=== PATIENT | female | born 1960 | race Caucasian/White ===

== ENCOUNTER 2017-12-23 08:02 | Day surgery (SDC) | payer OTHER ==
[2017-12-19 13:05] VITALS: BMI 25.0
[2017-12-23] MEDS ORDERED: BUPIVACAINE HCL/PF 2.5 MG/ML - 30 ML VIAL IJ ONE (10:39)
[2017-12-23] MEDS ORDERED: LIDOCAINE HCL/PF 2% SDV 5ML VIAL ONE (10:56)
[2017-12-23] MEDS ORDERED: PROPOFOL 20 ML ONE ×2 (10:56→11:07)
[2017-12-23] MEDS ORDERED: MIDAZOLAM HCL 2 MG/2 ML SINGLE DOSE VIAL ONE (10:57)
[2017-12-23] MEDS ORDERED: oxyCODONE HCL 5 MG TABLET PO PRN (12:15)
[2017-12-23] MEDS ORDERED: PROMETHAZINE HCL 25 MG/1 ML VIAL IVPUSH PRN (12:15)
[2017-12-23] MEDS ORDERED: ONDANSETRON 4 MG/2 ML VIAL IVPUSH PRN (12:15)
[2017-12-23] MEDS ORDERED: diazePAM 5 MG TABLET ONE ×2 (12:41→13:06)
[2017-12-23] MEDS ORDERED: MIDAZOLAM HCL 2 MG/2 ML SINGLE DOSE VIAL IVPUSH ONE ×2 (12:45)
[2017-12-23] MEDS ORDERED: HYDROmorphone HCL CARPU-JECT 2 MG/1 ML DISP.SYRIN IVPUSH PRN (13:39)
[2017-12-23] MEDS ORDERED: HYDROmorphone HCL 0.5 MG/0.5 ML SYRINGE ONE (13:40)
[2017-12-23] MEDS ORDERED: PROMETHAZINE HCL 25 MG/1 ML VIAL ONE (13:41)
[2017-12-23 14:31] VITALS: TEMP 98.1
[2017-12-23 16:02] VITALS: BP 122/80; PULSE 70
--- NOTE | 2017-12-25 10:42 | OP ---
DATE OF OPERATION: 12/23/2017 SURGEON: Williams Castañeda MD PURCHASING CLERK: ROBIN Wagner PREOPERATIVE DIAGNOSES: 1. Right knee medial and lateral meniscus tear. 2. Right knee cartilage injury. 3. Right knee synovitis. POSTOPERATIVE DIAGNOSES: 1. Right knee medial and lateral meniscus tear. 2. Right knee cartilage injury. 3. Right knee synovitis. PROCEDURE: 1. Right knee arthroscopy with partial meniscectomy of the medial and lateral meniscus; CPT code 34719. 2. Right knee arthroscopy with chondroplasty and abrasionplasty; CPT code 53416. 3. Right knee arthroscopy with synovectomy; CPT code 05618. FINDINGS: 1. Medical meniscus with body and posterior horn tear. 2. Lateral meniscus with tear. 3. Synovitis of the patellofemoral and intracondylar notch area. 4. Grade 2 cartilage injury of the medial femoral condyle. 5. ACL and PCL intact. 6. Grade 1 to 2 cartilage injury of the lateral tibial joint line, tibial plateau, and femoral condyle. 7. Grade 2 to 3 cartilage injury of the patella with grade 3 to 4 changes of the patellofemoral trochlea. PROCEDURE: Informed consent was obtained. The patient came to the operating room, where the lower extremity was prepped and draped in a sterile fashion. A tourniquet was placed on the upper thigh, but not inflated. Using standard arthroscopic technique, a lateral incision and portal was made to allow for introduction of the camera into the suprapatellar bursa. This was then taken to the medial joint line, where under direct visualization, a medial incision and portal was made. Excessive synovium noted in the medial, lateral and patellofemoral and notch area was removed by an upbiter, shaver and Bovie cautery. This was found to bring in inflammatory tissue into the joint surface, a source of pain and dysfunction. Probing of the medial and lateral meniscus found tears, as described in the findings. These were removed with the upbiter and shaver and taken back to a stable rim. Grade 2 to 3 degenerative changes were treated with a chondroplasty, removing all flaking surfaces with low-setting Bovie along the periphery to prevent further flaking. Grade 4 changes, as noted, were treated with an abrasionplasty, creating a bleeding surface at the bone/cartilage interface. Aggressive debridement with shaver/tereza created bleeding surface. Micro fracture also done when indicated in findings. All areas of the knee were once again reexamined. The knee was then drained and a single suture was placed in all portals. A sterile dressing was placed and the patient was transferred to the recovery room without complication. WILLIAMS CASTAÑEDA M.D. [id number]
--- NOTE | 2017-12-30 12:10 | PATH ---
Surgical Pathology Report Patient Name: BRUNO JOSE [facility]. Rec. #: [id number] /Age/Gender: 1960 (Age: 57) / F Account: [id number] Location: [facility] Taken: 12/23/2017 Received: 12/23/2017 Reported: 12/30/2017 Physicians: Williams Darling M.D. Specimen(s) Received RIGHT KNEE SHAVINGS Clinical History Right knee internal derangement Final Diagnosis Knee, right, arthroscopic shavings: Fibrosynovial tissue and cartilage. Electronically Signed Radha Westbrook M.D. Gross Description Received in formalin, labeled "right knee shavings," is a 4.3 x 4.0 x 0.4 cm. aggregate of powell-yellow soft tissue fragments. A ambulatory services representative portion is submitted in one cassette. /12/23/2017 saudi/12/23/2017
== END 2017-12-23 15:45 | disposition home or self-care (01) ==
LOC: FASU 08:02
PROVIDERS: ATTEND Orthopaedic Surgery
PROC: 0SBC4ZZ Excision of Right Knee Joint, Percutaneous Endoscopic Approach (ICD-10-PCS; 2017-12-23)
PROC: 0SBC4ZZ Excision of Right Knee Joint, Percutaneous Endoscopic Approach (ICD-10-PCS; principal; 2017-12-23 11:42)
DX: S83.241A Other tear of medial meniscus, current injury, right knee, initial encounter (principal); S83.281A Other tear of lateral meniscus, current injury, right knee, initial encounter; S83.8X1A Sprain of other specified parts of right knee, initial encounter; M65.861 Other synovitis and tenosynovitis, right lower leg; X58.XXXA Exposure to other specified factors, initial encounter; Y93.9 Activity, unspecified; Y92.9 Unspecified place or not applicable
CPT/HCPCS: 88304-TC; 94760